=== PATIENT | female | born 1950 ===

== ENCOUNTER 2018-03-22 08:07 | Outpatient (CLI) | payer OTHER | END 2018-03-22 08:12 | disposition home or self-care (01) | LOC: SONOGRAMA 08:07 | DX: E04.2 Nontoxic multinodular goiter (principal) ==

== ENCOUNTER 2018-12-25 08:35 | Outpatient (CLI) | payer OTHER | END 2018-12-25 09:01 | disposition home or self-care (01) | LOC: LAB 08:35 | DX: D24.2 Benign neoplasm of left breast (principal); Z01.812 Encounter for preprocedural laboratory examination; E03.8 Other specified hypothyroidism; Z01.811 Encounter for preprocedural respiratory examination; Z01.810 Encounter for preprocedural cardiovascular examination ==

== ENCOUNTER 2023-01-18 10:41 | Outpatient (CLI) | payer OTHER | END 2023-01-18 10:48 | disposition home or self-care (01) | LOC: MAMO-SONO 10:41 | PROVIDERS: ATTEND Internal Medicine | DX: C50.919 Malignant neoplasm of unspecified site of unspecified female breast (principal) ==